=== PATIENT | female | born 1990 | race Caucasian/White ===

== ENCOUNTER 2019-02-07 20:48 | Emergency (ER) | payer OTHER ==
[2019-02-07] MEDS ORDERED: IBUPROFEN 600 MG TABLET (FP) PO ONE ×2 (21:16→21:59)
--- NOTE | 2019-02-07 21:16 | PDOC ---
Rapid Medical Evaluation Medical Evaluation: Allergies Allergy/AdvReac Type Severity Reaction Status Date / Time No Known Allergies Allergy Verified 03/04/15 11:22 I have performed a brief in-person evaluation of this patient. The patient presents with a chief complaint of: s/p fell down 3 steps today; c/ o R ankle injury Pertinent physical exam findings: R ankle ira-wrapped; +swelling and TTP along lateral aspect of R ankle and foot I have ordered the following: xray, motrin The patient will proceed to the ED for further evaluation. 02/07/19 21:15 Discharge Disposition - Referrals Referrals: Kianna Mercado [Primary Care Provider] - - Patient Instructions - Post Discharge Activity
[2019-02-07 21:18] VITALS: BP 140/115; PULSE 119; TEMP 99.4; BMI 46.1
--- NOTE | 2019-02-07 22:13 | PDOC ---
History of Present Illness - General Chief Complaint: Injury Stated Complaint: RIGHT ANKLE INJURY Time Seen by Provider: 02/07/19 21:15 - History of Present Illness Initial Comments: 02/07/19 22:08 28 y/o F w/o CM presents for evaluation of R ankle and foot pain after a trip and fall [employer]CIM[employer]ESSION[employer] no LOC or head injury Past History - Past Medical History Allergies/Adverse Reactions: Allergies Allergy/AdvReac Type Severity Reaction Status Date / Time No Known Allergies Allergy Verified 02/07/19 21:18 Home Medications: Ambulatory Orders Hydroxyzine Pamoate 25 mg PO PRN 03/01/15 COPD: No Lung CA: Yes (ANXIETY) - Immunization History Immunization Up to Date: Yes - Suicide/Smoking/Psychosocial Hx Smoking History: Never smoked Have you smoked in the past 12 months: No Information on smoking cessation initiated: No Hx Alcohol Use: No Drug/Substance Use Hx: No Substance Use Type: None Review of Systems - Review of Systems Musculoskeletal: Yes: Joint Pain *Physical Exam - Vital Signs Last Vital Signs Temp Pulse Resp BP Pulse Ox 99.4 F 119 H 19 140/115 H 99 02/07/19 21:15 02/07/19 21:15 02/07/19 21:15 02/07/19 21:15 02/07/19 21:15 - Physical Exam Comments: 02/07/19 22:09 Right foot and ankle are swollen about the lateral aspect. There is no tenderness about the proximal fibula or along it's course distally, There is mild tenderness about the medial and lateral malleolus, as well as the ATFL. There is tenderness about the 5th MT, no gross sensory or motor deficits NIVD ED Treatment Course - Medications Given in the ED: ED Medications Discontinued Medications Generic Name Dose Route Start Last Admin Trade Name Freq PRN Reason Stop Dose Admin Ibuprofen 600 mg 02/07/19 21:16 02/07/19 22:03 Motrin - PO 02/07/19 21:17 600 mg ONCE ONE Administration Medical Decision Making - Medical Decision Making 02/07/19 22:10 There is a mid shaft angulated fx at the 5th MT Posterior splint applied. NVID post splint application. *DC/Admit/Observation/Transfer Diagnosis at time of Disposition: Right ankle sprain, Foot fracture, right - Discharge Dispostion Disposition: HOME Condition at time of disposition: Stable Decision to Admit order: No - Referrals Referrals: Kianna Mercado [Primary Care Provider] - Néstor Diane DO [Staff Physician] - - Patient Instructions Additional Instructions: Remain non weight bearing with the use of the splint and crutches. Tylenol as directed for pain. Avoid antiinflamatory medication such as advil, motrin, and ibuprofen. Follow up with orthopedic surgery in 1-2 days without fail for further evaluation and treatment options. - Post Discharge Activity
== END 2019-02-07 22:33 | disposition home or self-care (01) ==
LOC: JERFT 20:48
PROC: 2W3QX1Z Immobilization of Right Lower Leg using Splint (ICD-10-PCS; principal; 2019-02-07)
DX: S92.351A Displaced fracture of fifth metatarsal bone, right foot, initial encounter for closed fracture (principal); W10.8XXA Fall (on) (from) other stairs and steps, initial encounter; Y93.89 Activity, other specified; Y92.018 Other place in single-family (private) house as the place of occurrence of the external cause; Y99.8 Other external cause status
CPT/HCPCS: 73610-TC-RT-FY; 73630-TC-RT-FY; 99282-25

== ENCOUNTER 2022-10-04 20:43 | Emergency (ER) | payer OTHER ==
[2022-10-04 20:49] VITALS: BP 149/87; PULSE 96; RESP 20; TEMP 98.7; BMI 48.1
[2022-10-04] MEDS ORDERED: IBUPROFEN 600 MG TABLET (FP) PO ONE ×2 (21:12→21:14)
[2022-10-04] MEDS ORDERED: ACETAMINOPHEN 500 MG TABLET (FP) PO ONE (21:12)
[2022-10-04] MEDS ORDERED: ACETAMINOPHEN 500 MG TABLET (FP) ONE (21:14)
== END 2022-10-04 22:13 | disposition home or self-care (01) ==
LOC: JERFT 20:43
DX: M25.521 Pain in right elbow (principal); M25.531 Pain in right wrist; W01.0XXA Fall on same level from slipping, tripping and stumbling without subsequent striking against object, initial encounter; W54.8XXA Other contact with dog, initial encounter
CPT/HCPCS: 73070-TC-RT-FY; 73110-TC-RT-FY; 99283-25

== ENCOUNTER 2024-01-19 22:40 | Emergency (ER) | payer OTHER ==
[2024-01-19 22:45] VITALS: TEMP 97.7; BMI 48.1
[2024-01-19] MEDS ORDERED: ACETAMINOPHEN 500 MG TABLET (FP) ONE (23:19)
[2024-01-19 23:20] LABS: BASO % 0.5 % (0-2.0); EOS % 0.9 % (0-4.5); HEMATOCRIT 39.9 % (32.4-45.2); LYMPH % 18.8 % (8-40); MCH 25.7 pg (25.7-33.7); MCHC 32.5 g/dl (32.0-36.0); MEAN CELL VOLUME 79.2 fl (80-96); MONO % 6.1 % (3.8-10.2); NEUT % 73.7 % (42.8-82.8); PLATELET COUNT 357 10^3/uL (134-434); RBC 5.04 M/mm3 (3.60-5.2); RDW 15.2 % (11.6-15.6); WHITE BLOOD COUNT 12.1 K/mm3 (4.0-10.0)
[2024-01-19] MEDS ORDERED: LIDOCAINE 4% PATCH TP ONE (23:21)
[2024-01-19] MEDS: LIDOCAINE 4% PATCH TP ONE (23:27)
[2024-01-19] MEDS: ACETAMINOPHEN 500 MG TABLET (FP) PO ONE (23:27)
[2024-01-19 23:41] LABS: EPI CELLS 33 /uL (0-25.1); HYALINE CASTS 1 /uL (0-3.1); URINE APPEARANCE CLEAR; URINE BACTERIA 179 /uL (0-1359); URINE BILIRUBIN NEGATIVE (NEGATIVE); URINE COLOR YELLOW; URINE GLUCOSE (UA) NEGATIVE (NEGATIVE); URINE KETONE TRACE (NEGATIVE); URINE LEUK ESTERASE NEGATIVE (NEGATIVE); URINE NITRITE NEGATIVE (NEGATIVE); URINE PROTEIN TRACE (NEGATIVE); URINE RBC 45 /uL (0-23.9); URINE WBC 13 /uL (0-25.8)
[2024-01-20 00:20] LABS: CALCIUM 9.6 mg/dL (8.5-10.1)
[2024-01-20 00:21] LABS: ALBUMIN 3.9 g/dl (3.4-5.0); BLOOD UREA NITROGEN 13.4 mg/dL (7-18)
[2024-01-20 00:24] LABS: CREATININE 0.6 mg/dL (0.55-1.3)
[2024-01-20 00:26] LABS: BILIRUBIN,TOTAL 0.8 mg/dL (0.2-1)
[2024-01-20 00:30] VITALS: BP 131/91; PULSE 96; RESP 16
[2024-01-20 00:36] LABS: HIV INTERPRETATION NEGATIVE (NEGATIVE)
[2024-01-20] MEDS ORDERED: LIDOCAINE PATCH REMOVAL MC ONE (11:00)
== END 2024-01-20 01:19 | disposition home or self-care (01) ==
LOC: JER 22:40
DX: M54.6 Pain in thoracic spine (principal)
CPT/HCPCS: 36415; 71046-TC-FY; 80053; 81003; 84703; 85025; 86803; 87077; 87086; 87389; 99284-25